=== PATIENT | male | born 1960 | race Caucasian/White ===

== ENCOUNTER 2024-09-24 08:01 | Day surgery (SDC) | payer BC, SELFPAY ==
[2024-09-23 19:42] VITALS: BMI 32.7
[2024-09-23 19:44] VITALS: BP 161/89
--- NOTE | 2024-09-23 19:49 | ED.GENMED ---
ED Provider Triage
<Yeison Novoa PA-C - Last Filed: 09/23/24 19:50>
-
Patient seen by provider in Triage?: Seen in Triage
Attestation: A medical screening examination has been initiated by a qualified medical provider. Based on the assessment performed at this time, it has been determined that an emergent medical condition may exist and the patient has been informed
that further medical evaluation and possible additional diagnostic testing may be needed.
HPI: 64-year-old male with history of intermittent esophageal food impactions. He felt like he had a piece of chicken stuck in his throat. His typical remedies to drink a large amount of water and swallow forcefully. This typically pushes the
foreign body down however upon doing this tonight he had a sudden onset of ripping or tearing sensation in the center of his chest then proceeded to cough up blood. He did not cough up any of the food. He still notes discomfort in the center of
his chest
Patient appears uncomfortable at triage. Not spitting. Will check labs EKG but concern for possible esophageal injury. CT of chest with IV contrast pending
GENERAL: Alert , in no apparent distress
EYE: No visual abnormalities.
NECK: Trachea midline
ENT: No visible abnormalities.
LUNGS: No acute respiratory distress
NEUROLOGICAL: Alert and oriented
SKIN: Skin intact. No visible changes.
MUSCULOSKELETAL: Moving extremities normally
PSYCH: Normal and appropriate interaction.
This is a medical evaluation conducted in person to initiate diagnostic evaluation and provide initial therapeutics. Please see further documentation by the treating clinician.
History of Present Illness
<Yeison Novoa PA-C - Last Filed: 09/23/24 19:50>
General
Chief Complaint: Esophageal Problem
Time Seen by Provider: 09/24/24 02:57
<Epi Arreola DO - Last Filed: 09/24/24 07:00>
General
Source: patient
History of Present Illness
History of Present Illness:
64-year-old male presents to the emergency room complaining of of a piece of chicken being stuck in his esophagus. Patient attempted to dislodge it by drinking some water. This caused him to regurgitate. He had significant pain in his chest after
regurgitation. He also was regurgitating bloody material. The bleeding seems to have subsided but he is still unable to swallow any liquids. He has occasional spasms of pain in his upper abdomen and lower chest. Patient was seen in triage and a
CT of the chest was ordered given the significant pain he was having at the time with concern for esophageal rupture.
Past History
<Yeison Novoa PA-C - Last Filed: 09/23/24 19:50>
Past History
ED Past Medical History: Other (Esophageal food impaction)
ED Past Surgical History: None
Social History
Tobacco: Non-smoker
Alcohol: None
Personal:
Employment: Employed
Phy Exam
<Epi Arreola DO - Last Filed: 09/24/24 07:00>
Physical Exam
Physical Exam:
General: Awake, Alert, Oriented X3. Patient at times appears uncomfortable from retching and notes she has been
Vitals: unremarkable
Head: Atraumatic
Eyes: Pupils equal, EOMI
Throat: Airway intact, no exudates
Neck: Trachea midline
Lungs: Clear and equal b/l
Heart: Regular rate, no murmurs
Abd: Soft, Nontender, No pulsatile mass
Neuro: Nonfocal
Skin: Warm, dry, no rash
Extremities: pulses equal b/l, no edema
Course
<Yeison Novoa PA-C - Last Filed: 09/23/24 19:50>
Orders/Labs/Results
Orders:
Orders
09/23/24 19:43
ECG [Electrocardiogram (*1)] Urgent
Reason for Study: Chest Pain
09/23/24 19:44
EKG- Treatment ONCE
09/23/24 19:48
CT Chest With Iv Contrast Urgent
Comment:
Reason For Exam: pain in chest, coughed up blood, food impaction
09/23/24 20:03
Complete Blood Count/With Diff Urgent
Comprehensive Metabolic Panel Urgent
09/24/24 03:56
Glucagon [GlucaGen] 1 mg IV NOW STA
09/24/24 06:11
Dexamethasone Sod Phosphate [Decadron] 20 mg .ROUTE .STK-MED ONE
Lidocaine HCl/Pf [Xylocaine-Mpf 1% Vial] 50 mg .ROUTE .STK-MED ONE
Rocuronium [place] [Rocuronium] 50 mg .ROUTE .STK-MED ONE
Sugammadex Sodium [Bridion] 200 mg .ROUTE .STK-MED ONE
09/24/24 06:12
Ondansetron Injectable [Zofran] 4 mg .ROUTE .STK-MED ONE
Propofol [Diprivan] 40 ml .ROUTE .STK-MED
09/24/24 06:19
Phenylephrine HCl/0.9% NaCl [Kit-Synephrine] 1,000 mcg .ROUTE .STK-MED ONE
Succinylcholine Chloride [Succinylcholine] 200 mg .ROUTE .STK-MED ONE
09/24/24 06:56
Ondansetron Injectable [Zofran] 4 mg IV PACU-ONCEPRN PRN
Prochlorperazine [Compazine] 5 mg IV PACU-ONCEPRN PRN
Notify MD As Directed
Notify physician if: for SDS patients with known or suspected sleep obstructive sleep apnea, monitor in the
PACU.
Notify MD for any apneic/desaturation episodes
O2 Therapy [RESP] Urgent
Titrate/Wean O2 to maintain O2 sat greater than (%): 95
Special Instructions: -Provide supplemental oxygen to achieve O2 sat of 95% or greater.
-After 15 min, may wean O2 and discontinue if patient is able to maintain O2 sat of 95%
or greater during recovery period.
If patient is a discharge home, without oxygen therapy, notify anestheiologist if
unable to maintain O2 SAT of 95% or greater on room air for MD clearance.
09/24/24 07:00
Normosol (Mult Electrolytes) [Normosol-R/Plasmalyte-A] 1,000 ml IV PER PROTOCOL
Abnormal Lab Results
09/23/24
20:03
RBC 4.53 L 10^6/uL
(4.70-6.10)
MCH 31.1 H pg
(27.0-31.0)
Abs Immat Gran (auto) 0.1 H 10^3/uL
(0-0.05)
Absolute Lymphs (auto) 4.1 H 10^3/uL
(1.2-3.4)
Absolute Monos (auto) 0.7 H 10^3/uL
(0.1-0.6)
Immature Gran % 0.6 H %
(0-0.5)
Sodium 130 L mmol/L
(135-145)
Chloride 94 L mmol/L
(98-107)
Glucose 110 H mg/dl
(70-99)
09/23/24 20:03
09/23/24 20:03
Vital Signs
Initial and Last Documented VS:
Initial Vital Signs
Temp Pulse Resp BP Pulse Ox
98.7 F 72 18 161/89 96
09/23/24 19:44 09/23/24 19:44 09/23/24 19:44 09/23/24 19:44 09/23/24 19:44
Last Documented Vital Signs
Temp Pulse Resp BP Pulse Ox
98.7 F 92 18 144/96 95
09/23/24 19:44 09/23/24 23:56 09/23/24 19:44 09/24/24 06:00 09/24/24 06:30
<Epi Arreola DO - Last Filed: 09/24/24 07:00>
Orders/Labs/Results
Orders:
Orders
09/23/24 19:43
ECG [Electrocardiogram (*1)] Urgent
Reason for Study: Chest Pain
09/23/24 19:44
EKG- Treatment ONCE
09/23/24 19:48
CT Chest With Iv Contrast Urgent
Comment:
Reason For Exam: pain in chest, coughed up blood, food impaction
09/23/24 20:03
Complete Blood Count/With Diff Urgent
Comprehensive Metabolic Panel Urgent
09/24/24 03:56
Glucagon [GlucaGen] 1 mg IV NOW STA
09/24/24 06:11
Dexamethasone Sod Phosphate [Decadron] 20 mg .ROUTE .STK-MED ONE
Lidocaine HCl/Pf [Xylocaine-Mpf 1% Vial] 50 mg .ROUTE .STK-MED ONE
Rocuronium [place] [Rocuronium] 50 mg .ROUTE .STK-MED ONE
Sugammadex Sodium [Bridion] 200 mg .ROUTE .STK-MED ONE
09/24/24 06:12
Ondansetron Injectable [Zofran] 4 mg .ROUTE .STK-MED ONE
Propofol [Diprivan] 40 ml .ROUTE .STK-MED
09/24/24 06:19
Phenylephrine HCl/0.9% NaCl [Kit-Synephrine] 1,000 mcg .ROUTE .STK-MED ONE
Succinylcholine [place] [Succinylcholine] 200 mg .ROUTE .STK-MED ONE
09/24/24 06:56
Ondansetron Injectable [Zofran] 4 mg IV PACU-ONCEPRN PRN
Prochlorperazine [Compazine] 5 mg IV PACU-ONCEPRN PRN
Notify MD As Directed
Notify physician if: for SDS patients with known or suspected sleep obstructive sleep apnea, monitor in the
PACU.
Notify MD for any apneic/desaturation episodes
O2 Therapy [RESP] Urgent
Titrate/Wean O2 to maintain O2 sat greater than (%): 95
Special Instructions: -Provide supplemental oxygen to achieve O2 sat of 95% or greater.
-After 15 min, may wean O2 and discontinue if patient is able to maintain O2 sat of 95%
or greater during recovery period.
If patient is a discharge home, without oxygen therapy, notify anestheiologist if
unable to maintain O2 SAT of 95% or greater on room air for MD clearance.
09/24/24 07:00
Normosol (Mult Electrolytes) [Normosol-R/Plasmalyte-A] 1,000 ml IV PER PROTOCOL
Abnormal Lab Results
09/23/24
20:03
RBC 4.53 L 10^6/uL
(4.70-6.10)
MCH 31.1 H pg
(27.0-31.0)
Abs Immat Gran (auto) 0.1 H 10^3/uL
(0-0.05)
Absolute Lymphs (auto) 4.1 H 10^3/uL
(1.2-3.4)
Absolute Monos (auto) 0.7 H 10^3/uL
(0.1-0.6)
Immature Gran % 0.6 H %
(0-0.5)
Sodium 130 L mmol/L
(135-145)
Chloride 94 L mmol/L
(98-107)
Glucose 110 H mg/dl
(70-99)
09/23/24 20:03
09/23/24 20:03
Vital Signs
Initial and Last Documented VS:
Initial Vital Signs
Temp Pulse Resp BP Pulse Ox
98.7 F 72 18 161/89 96
09/23/24 19:44 09/23/24 19:44 09/23/24 19:44 09/23/24 19:44 09/23/24 19:44
Last Documented Vital Signs
Temp Pulse Resp BP Pulse Ox
98.7 F 92 18 144/96 95
09/23/24 19:44 09/23/24 23:56 09/23/24 19:44 09/24/24 06:00 09/24/24 06:30
<Epi Arreola DO - Last Filed: 09/24/24 07:00>
MDM/Problems Addressed
Differential Diagnosis Includes:
Esophageal perforation, esophageal obstruction, esophageal spasm
MDM/Problems Addressed:
Given the amount of discomfort the patient was describing triage provider CT of the chest. No evidence of esophageal perforation on the imaging. Patient is not tolerating liquids or secretions at the time of my evaluation. He was given a dose of
glucagon without improvement. Patient will require endoscopy to alleviate esophageal obstruction. I communicated with Dr. Quinn is on-call for GI. He will take him to the GI lab eventually today.
<DO Jennifer Grissom Last Filed: 09/24/24 07:00>
*Radiology
Radiology exam reviewed: radiology read reviewed
*Pulse Oximetry
Patient hypoxic: no
*Critical Care Note
Total Time (30-74mins, 75-104mins- exclusive of procedures): Not Applicable
ED Attending Note
<Yeison Novoa PA-C - Last Filed: 09/23/24 19:50>
-
Portions of this chart may have been created with voice recognition software.� Occasional wrong word or��sound alike� substitutions may have occurred due to the inherent limitations of voice recognition software.
Discharge Plan
Departure
Patient Disposition: GI LAB
Date of Disposition: 09/24/24
Time of Disposition: 05:07
Presentation/result/management discussed w/ accepting MD/DO: Dr Vazquez
Condition: Fair
Discharge Problem:
Food impaction of esophagus
Prescriptions:
No Action
escitalopram oxalate 10 MG tablet
10 mg PO DAILY
rosuvastatin [Crestor] 10 MG tablet
10 mg PO DAILY
nepafenac [Ilevro] 3 ML drops,suspension
1 drp RIGHT EYE DAILY
Patient Comments:
0.3%
difluprednate [Durezol] 5 ML drops
1 drp RIGHT EYE TID
Patient Comments:
0.05%
pantoprazole 40 MG tablet,delayed release (DR/EC)
40 mg PO BID Qty: 60 0RF
Referrals:
Yang Key MD [Family Provider] -
Interventions
Interventions:
*Risk Screen - Suicide Last Done: 09/24/24 03:33
*General Assessment Last Done: 09/24/24 03:33
*Neglect/Abuse Screening Last Done: 09/24/24 03:33
*ED COVID-19 Vaccine History Last Done: 09/24/24 03:33
*Nursing Disposition Last Done: 09/24/24 06:50
BB-Ljytwv-Vptwucxlly Assessment Last Done: 09/24/24 03:35
ED-EENT Assessment Last Done: 09/24/24 03:35
Discharge Date and Time
Discharge Date/Time: 09/24/24 06:50
Print Language: PANAMANIAN
[2024-09-23 20:13] LABS: Hematocrit 41.2 % (39.0-52.0); Hemoglobin 14.1 g/dL (13.0-18.0); Mean Corp Hgb Conc. 34.2 g/dL (33.0-37.0); Mean Corpuscular Hgb 31.1 pg (27.0-31.0); Mean Corpuscular Volume 90.9 fL (80.0-94.0); Mean Platelet Volume 8.9 fL (7.4-10.4); Platelet Count 338 10^3/uL (130-400); Red Blood Cell Count 4.53 10^6/uL (4.70-6.10); Red Cell Dist. Width 11.9 % (11.5-14.5); White Blood Cell Count 10.5 10^3/uL (4.8-10.8)
[2024-09-23 20:34] LABS: % Basophils 0.6 % (0-2); % Eosinophils 4.4 % (0-6); % Immature Granulocytes 0.6 % (0-0.5); % Lymphocytes 38.9 % (20.5-51.1); % Monocytes 7.1 % (1.7-9.3); % Neutrophils 48.4 % (42.2-75.2); Absolute Basophils 0.1 10^3/uL (0-0.2); Absolute Eosinophils 0.5 10^3/uL (0-0.7); Absolute Immature Granulocytes 0.1 10^3/uL (0-0.05); Absolute Lymphocytes 4.1 10^3/uL (1.2-3.4); Absolute Monocytes 0.7 10^3/uL (0.1-0.6); Absolute Neutrophils 5.1 10^3/uL (1.4-6.5); Nucleated Red Blood Cells % 0 % (-)
[2024-09-23 20:37] LABS: ALT (SGPT) 20 U/L (0-50); AST (SGOT) 21 U/L (17-59); Albumin 4.5 g/dl (3.5-5.0); Alkaline Phosphatase 69 U/L (38-126); Blood Urea Nitrogen 13 mg/dl (9-20); Calcium 8.9 mg/dl (8.4-10.2); Carbon Dioxide 22 mmol/L (22-30); Chloride 94 mmol/L (98-107); Glucose 110 mg/dl (70-99); Sodium 130 mmol/L (135-145); Total Bilirubin 0.5 mg/dl (0.2-1.3); Total Protein 6.7 g/dl (6.3-8.2); eGFR > 60.00
[2024-09-23 23:56] VITALS: BP 132/94
[2024-09-24] VITALS (9 sets, daily range): BP systolic 136–159; BP diastolic 80–106
[2024-09-24] MEDS: GlucaGen 1 MG IV (04:11)
--- NOTE | 2024-09-24 05:22 | CON.GI ---
Consultation
-
Date/Time Consultation Performed: 09/24/24
Performing Provider: Justino Vazquez MD
Reason for Consultation: food impaction
Medical History
Chief Complaint / HPI
Chief Complaint: dysphagia
History of Present Illness:
The patient is a 64-year-old male with past medical history as noted with food impaction. He was in his usual state of health until yesterday when having chicken with rice had acute onset dysphagia. This was associated with severe lower
esophageal/chest spasms which were different from his usual symptoms. He has had multiple food impactions over the years, last endoscopy with Dr. Escobar in 2022 with hiatal hernia and Schatzki's ring. He had been feeling well up until this time,
taking PPI with no significant new symptoms prior to this. He did bring up some liquid with blood at first, though no blood recently. He still feels that he has food impaction has tried sips of clears and unable to tolerate. He still having
esophageal spasm. Given his pain he had a chest CT that showed no other significant pathology, the did show thickened distal esophagus. He currently denies any shortness of breath, fever or chills.
Past Medical History
Past Medical History: GERD and Hypercholesterolemia
Past Surgical History: Other (Left TKA, right eye surgery)
Social History
Tobacco: Other (Prior tobacco, occasional alcohol)
Family History
Family History: Reviewed & Not Pertinent
Allergies / Home Medications
Allergy/AdvReac Type Severity Reaction Status Date / Time
Cephalosporins Allergy NUMBNESS Verified 03/31/21 23:36
IN HANDS
Fish Containing Products Allergy Anaphylaxis Verified 03/31/21 23:36
�Medication �Instructions �Recorded
escitalopram oxalate 10 mg tablet 10 mg PO DAILY Mental 01/22/14
Health/Anxiety
difluprednate 0.05 % eye drops 1 drp RIGHT EYE TID Eye condition 04/01/21
(Durezol)
nepafenac 0.3 % eye 1 drp RIGHT EYE DAILY Eye condition 04/01/21
drops,suspension (Ilevro)
pantoprazole 40 mg tablet,delayed 40 mg PO BID #60 tabs 04/01/21
release
rosuvastatin 10 mg tablet (Crestor) 10 mg PO DAILY High cholesterol 04/01/21
Review of Systems
-
All other systems: A 12 pt ROS was Negative except as stated above in HPI
Vital Signs
Temp Pulse Resp BP Pulse Ox
98.7 F 92 18 132/94 93
09/23/24 19:44 09/23/24 23:56 09/23/24 19:44 09/23/24 23:56 09/24/24 03:45
Physical Exam
Exam
General: NAD
HEENT: MMM, anicteric, no lymphadenopathy
Heart: Regular, no murmurs
Lungs: CTA bilaterally
Abdomen: normal bowel sounds, soft, no tenderness, no rebound or guarding, no masses, bruits or ascites
Extremeties: no edema
Skin: no rashes
Results
WBC 10.5 10^3/uL (4.8-10.8) 09/23/24 20:
Hgb 14.1 g/dL (13.0-18.0) 09/23/24 20:03
Hct 41.2 % (39.0-52.0) 09/23/24 20:03
MCV 90.9 fL (80.0-94.0) 09/23/24 20:03
Plt Count 338 10^3/uL (130-400) 09/23/24 20:03
Absolute Neuts (auto) 5.1 10^3/uL (1.4-6.5) 09/23/24 20:
Sodium 130 mmol/L (135-145) L 09/23/24 20:03
Potassium 4.0 mmol/L (3.5-5.1) 09/23/24 20:
Chloride 94 mmol/L (98-107) L 09/23/24 20:03
Carbon Dioxide 22 mmol/L (22-30) 09/23/24 20:
BUN 13 mg/dl (9-20) 09/23/24 20:
Creatinine 0.8 mg/dL (0.7-1.3) 09/23/24 20:
Calcium 8.9 mg/dl (8.4-10.2) 09/23/24 20:
Total Bilirubin 0.5 mg/dl (0.2-1.3) 09/23/24 20:
AST 21 U/L (17-59) 09/23/24 20:
ALT 20 U/L (0-50) 09/23/24 20:
Alkaline Phosphatase 69 U/L (38-126) 09/23/24 20:03
Diagnostic Image Results:
Prior GI Procedures:
EGD:
Colonoscopy:
Assessment / Plan
-
1. Food impaction: With history of Schatzki's ring and hiatal hernia, now with recurrent food impaction. He still having esophageal spasm and unable to tolerate sips of clears. Will plan urgent EGD.
-
-
Thank you for consultation and allowing me to participate in the patient's care. Please call the administrative receptionist GI physician during the after hours with any questions or concerns.
== END 2024-09-24 08:54 | disposition home or self-care (01) ==
LOC: PACU 08:01
PROVIDERS: Physician Assistant; ATTENDING PHYSICIAN Internal Medicine Gastroenterology; EMERGENCY PHYSICIAN Emergency Medicine; FAMILY PHYSICIAN Family Medicine
DX: T18.128A Food in esophagus causing other injury, initial encounter (principal); W44.F3XA Food entering into or through a natural orifice, initial encounter; K22.2 Esophageal obstruction; K44.9 Diaphragmatic hernia without obstruction or gangrene; K22.11 Ulcer of esophagus with bleeding; T18.108A Unspecified foreign body in esophagus causing other injury, initial encounter
CPT/HCPCS: 43247; 71260; 80053; 85025; 93005; 96374; 99285; J1610; Q9967

== ENCOUNTER 2024-11-13 06:20 | Day surgery (SDC) | payer BC, SELFPAY | END 2024-11-13 11:59 | disposition home or self-care (01) | LOC: GI 06:20 | PROVIDERS: ATTENDING PHYSICIAN Internal Medicine Gastroenterology | DX: R13.10 Dysphagia, unspecified (principal); K22.2 Esophageal obstruction; K44.9 Diaphragmatic hernia without obstruction or gangrene | CPT/HCPCS: 43249 ==